=== PATIENT | female | born 1955 | race Caucasian/White ===

== ENCOUNTER 2018-07-15 08:14 | Day surgery (SDC) | payer OTHER ==
[~2018-07-15] VITALS: Ht 154.9 cm; Wt 55.3 kg
[~2018-07-15 08:14] MED LIST: LR 1,000 ML IV ONE; MULT1TAB10 PO
[2018-07-15] MEDS ORDERED: BUPIVACAINE HCL 0.5% 10 ML VIAL As Ordered ONE (09:17)
[2018-07-15] MEDS ORDERED: dexameTHASONE 4 MG/ML 1ML VIAL (J1100) As Ordered ONE (09:17)
[2018-07-15] MEDS ORDERED: BACITRACIN PWD 50,000 UNITS VIAL As Ordered ONE (09:18)
[2018-07-15] MEDS ORDERED: LIDOCAINE 2% MDV 20 ML VIAL As Ordered ONE (09:18)
[2018-07-15] MEDS ORDERED: NEOSPORIN GU IRRIG 20 ML VIAL As Ordered ONE (09:18)
[2018-07-15] MEDS ORDERED: fentaNYL 100 MCG/2 ML INJECTION (J3010) As Ordered ONE (10:09)
[2018-07-15] MEDS ORDERED: PROPOFOL 200 MG/20 ML VIAL As Ordered ONE (10:09)
[2018-07-15] MEDS ORDERED: MIDAZOLAM INJ 2 MG/2 ML VIAL (J2250) As Ordered ONE (10:09)
[2018-07-15] MEDS ORDERED: ePHEDrine SULFATE 25 MG/5 ML(5MG/ML) SYRINGE As Ordered ONE (10:10)
[2018-07-15] MEDS ORDERED: PERCOCET 5MG/325MG TAB PO PRN (11:15)
[2018-07-15] MEDS ORDERED: fentaNYL 100 MCG/2 ML INJECTION (J3010) IV PRN (11:15)
[2018-07-15] MEDS ORDERED: LR 1,000 ML IV SCH (11:15)
[2018-07-15 11:20] VITALS: BP 118/59
--- NOTE | 2018-07-15 13:40 | REP ---
PORTABLE RIGHT FOOT, THREE VIEWS: HISTORY: Right bunionectomy. A cast is present. The patient is status-post osteotomy of the first metatarsal. A metal screw is present. Small collections of subcutaneous air are present. There is no acute fracture or dislocation. The joint spaces are normal in appearance. IMPRESSION:The patient is status-post osteotomy of the first metatarsal. There is anatomic alignment. Electronically Signed by Elias Flowers MD 07/15/2018 01:42 P
--- NOTE | 2018-07-15 17:58 | RO ---
DATE OF PROCEDURE: 07/15/2018 PREOPERATIVE DIAGNOSIS: Hallux valgus deformity, right foot. POSTOPERATIVE DIAGNOSIS: Hallux valgus deformity, right foot. PROCEDURES PERFORMED: Darnell bunionectomy, internal screw fixation, 3.0 mm x 22 mm times one, right foot. SURGEON: Dr. Rogers Boo DPM ZOOLOGY TEACHER: None. HEMOSTASIS: Ankle pneumatic tourniquet at 22 mm of mercury for 30 minutes. HARDWARE UTILIZED: An Arthrex headless compression screw, 3.0 mm x 22 mm times one. ESTIMATED BLOOD LOSS: Less than 1 mL. DESCRIPTION OF PROCEDURE: On 07/15/2018, this 63-year-old white female was taken from her hospital room to the operating room and placed on the operating table in the supine position. Following the induction of intravenous (IV) sedation and local and regional anesthesia, the right lower extremity was prepped and draped in the usual aseptic manner. Sterile draping was completed, and the ankle pneumatic tourniquet was applied over a well-padded site. The ankle pneumatic tourniquet was rapidly inflated to 225 mm of mercury, and the following procedure was performed. DARNELL BUNIONECTOMY WITH INTERNAL SCREW FIXATION, LEFT FOOT: Attention was directed to the patient's left foot. There was noted to be a moderately severe hallux valgus deformity. At this time a 6 cm incision was placed over the 1st metatarsophalangeal joint of the right foot medial to the extensor tendon. The incision was deepened in subcutaneous tissues, and all coursing venous tributaries were identified, underscored, clamped, cut, ligation, and electrocoagulated as necessary. The incision was deepened in the same plane. A linear capsulotomy was performed in the same plane as the original skin incision. The capsular and periosteal structures were then dissected free in one continuous layer, dorsal, medial, and lateral. This created a capsuloperiosteal-type envelope. This delivered into view the hypertrophied medial eminence of the 1st metatarsal, which was osteotomized from distal to proximal through and through, exiting medial to the sesamoidal groove. Attention was directed to the 1st intermetatarsal space, where dissection was carried down to the level of the conjoined tendons, which were sharply dissected free from the fibular sesamoid. Attention was directed to the medial surface of the 1st metatarsal, where a V-shaped osteotomy was performed in the distal metaphysis of the 1st metatarsal with a long plantar and short dorsal wing. Upon creation of this osteotomy, the capital fragment was transposed approximately 40% of the width of the shaft of the 1st metatarsal and fixated with a 3.0 x 22 mm headless compression screw. The osteotomy was noted to be stable in all three cardinal planes. Redundant cortical spike was then osteotomized from dorsal to plantar through and through and extirpated from the wound. This screw did not penetrate the inferior cartilage under direct visualization. The wound was flushed with copious amounts of dilute bacitracin, neomycin, and polymyxin B solution. Attention was directed toward closure, where the capsular structures were coapted and maintained utilizing 2-0 Monocryl in a simple interrupted-type fashion. Subcutaneous tissues were coapted and maintained using 4-0 Monocryl in a simple interrupted-type fashion. Skin incision were coapted and maintained utilizing 5-0 Monocryl in a continuous subcuticular-type fashion. This was additionally enforced with Steri-Strips. Following the completion of surgical procedure, 4 mg of dexamethasone sodium phosphate was instilled proximal to surgical site. Attention was directed toward bandaging, where a sterile compression bandage was applied consisting of Adaptic, 4 x 4's, 4 x 4 splints, Shahzad, Kerlix, and Coban. The ankle pneumatic tourniquet was rapidly deflated, and instantaneous capillary filling time was noted in digits 1-5 of the patient's right foot. Patient having apparently tolerated the surgical procedure well was taken from the OR to the recovery room, vital signs stable, patient afebrile, for further monitoring by the anesthesia department. All surgical specimens removed from the operative procedure were sent to pathology for gross and microscopic examination. Postoperative instructions given upon discharge.
== END 2018-07-15 11:37 | disposition home or self-care (01) ==
LOC: M SDC 08:14
PROVIDERS: ATTEND Podiatrist
DX: M20.11 Hallux valgus (acquired), right foot (principal); M79.671 Pain in right foot
CPT/HCPCS: 28296; 73630; 88300; 97116; C1713; J0690; J1100; J2250; J3010

== ENCOUNTER → 2018-11-24 | Outpatient (REF) | payer OTHER ==
[~2018-11-24] MED LIST changes: -LR 1,000 ML IV ONE
== END ==
LOC: M LAB LCGH 12:04
PROVIDERS: ATTEND Nurse Practitioner Adult Health
DX: Z12.4 Encounter for screening for malignant neoplasm of cervix (principal)
CPT/HCPCS: 87624; G0123